=== PATIENT | male | born 1935 | race Caucasian/White ===

== ENCOUNTER 2021-11-18 23:29 | Emergency (ER) | payer MEDICARE, BC ==
[~2021-11-18 23:29] MED LIST: AMLO1CAP77 PO; ATOR40TA72 PO; FINA5TAB11 PO; FLO0.4C PO; HYDR12.55 PO; MONT-40 PO; OMEP20CA16 PO
== END 2021-11-19 02:29 | disposition left against medical advice (07) ==
LOC: ER 23:29
DX: R10.9 Unspecified abdominal pain (principal); Z53.21 Procedure and treatment not carried out due to patient leaving prior to being seen by health care provider